=== PATIENT | male | born 1995 | race Caucasian/White ===

== ENCOUNTER 2019-07-04 10:50 | Emergency (ER) | payer OTHER, SELFPAY ==
[2019-07-04 11:04] VITALS: BP 114/75; PULSE 60; RESP 16; TEMP 36.6; O2SAT 99; BMI 22.1
--- NOTE | 2019-07-04 11:04 | ED_ITS ---
HPI - Head Injury General: Chief complaint: Head Injury Stated complaint: Hit head Time Seen by Provider: 07/04/19 11:04 Source: patient Mode of arrival: ambulatory Limitations: no limitations History of Present Illness: HPI Narrative: Pt had trauma to head while at work, part fell on head while working under car. States about 50 lbs. Complaint: head injury Onset (ago): hour(s) Place: work Severity: mild Review of Systems General: Reports: 10 or more systems reviewed and unremarkable except in HPI and below PFSH ED PFSH: Social History Smoking and tobacco status: never smoked Physical Exam Const: COMMON NORMALS: no apparent distress, oriented x3, no limitations and alert GENERAL APPEARANCE: cooperative and comfortable ORIENTATION/CONSCIOUSNESS: Yes awake, Yes oriented to person, Yes oriented to place and Yes oriented to time HENMT: COMMON NORMALS: normocephalic, head/scalp atraumatic, external ears normal, EAC's normal, TM's normal bilaterally and external nose normal HEAD & SCALP: normal to inspection, normocephalic and atraumatic HEAD IMAGES: 1. small area of ecchymosis and abrasion FACE & SINUS: normal facial exam, sinuses nontender and face symmetric NOSE: external nose normal, nares normal and no nasal discharge EXTERNAL EAR: Yes external ears normal EXTERNAL AUDITORY CANAL: EAC's normal TYMPANIC MEMBRANE: TM's normal bilaterally MOUTH: oral and palatal mucosa normal, lip normal and tongue normal THROAT: posterior oropharynx normal, tonsils normal and uvula midline Eye: COMMON NORMALS: PERRL, EOMs intact bilaterally and conjunctivae normal GENERAL EYE: normal appearance of both eyes and normal light reflex EYELID: eyelids normal CONJUNCTIVA: Yes conjunctivae normal PUPIL: Yes PERRL EOM: Yes EOM abnormal DIRECT OPHTHALMOSCOPY: Yes normal light reflex Neck/C-Spine: COMMON NORMALS: full ROM, no lymphadenopathy, supple, no meningeal signs, no JVD and thyroid normal GENERAL: Yes normal visual inspection THYROID: thyroid normal CERVICAL SPINE: Yes cervical ROM normal and Yes normal cervical lordosis Lymph: LYMPHATIC: no lymphadenopathy noted Chest: COMMONS NORMALS: inspection of chest normal and palpation of chest normal Resp: COMMON NORMALS: normal respiratory effort, no retractions and clear to auscultation bilaterally AUSCULTATION: clear to auscultation bilaterally Cardio: COMMON NORMALS: no JVD, regular rate, regular rhythm, S1 normal heart sound, S2 normal heart sound, no gallops, no clicks, no murmurs, no rub and peripheral pulses 2+ throughout RATE: regular rate RHYTHM: regular rhythm HEART SOUNDS: S1 normal and S2 normal PERIPHERAL PULSES: pulses 2+ throughout GI: COMMON NORMALS: normal to inspection, nondistended, normoactive bowel sounds, soft to palpation, non-tender and no masses PALPATION: Yes soft : COMMON NORMALS: Yes no CVA tenderness BLADDER/KIDNEY EXAM: Yes no CVA tenderness Back/Pelvis: COMMON NORMALS: no CVA tenderness, thoracic and lumbar spine normal to inspection, no thoracic nor lumbar tenderness and thoraco-lumbar ROM normal Extremity: COMMON NORMALS: normal to inspection, full ROM, normal capillary refill, no joint enlargement, no clubbing, cyanosis or edema, no calf tenderness and no pedal edema GENERAL: Yes normal exam except as noted Neuro: COMMON NORMALS: oriented x3, moves all extremities, no focal motor deficits, no sensory deficits noted and gait normal SENSORIUM/ORIENTATION: Yes alert, Yes oriented to person, Yes oriented to place and Yes oriented to time MENINGEAL SIGNS: Yes no meningeal signs Psych: COMMON NORMALS: mental status grossly normal, thought process normal, cooperative, affect normal, speech normal and activity/motor behavior normal SPEECH: Yes normal speech THOUGHT PROCESS: normal thought process Skin: COMMON NORMALS: no rashes or lesions noted, no wounds and skin turgor normal GENERAL SKIN EXAM: no rashes or lesions noted and turgor normal Course ED course: Pt assymptomatic upon arrival. States injury occurred two hours ago. Due to hx of brain bleed, will proceed with ct head despite negative assessment. Reevaluation(s): Reevaluation #1: CT head completed. Pt requesting pain meds. Orders placed. Awaiting dictation of report before DC Time: 12:44 Vital Signs: Vital signs: Vital Signs Temperature 97.9 F 07/04/19 11:04 Pulse Rate 51 L 07/04/19 12:54 Respiratory Rate 16 07/04/19 12:54 Blood Pressure 117/78 07/04/19 12:54 Pulse Oximetry 99 07/04/19 12:54 MDM - Head Injury Imaging Data^: CT Head: Radiologist's impression: [facility] [address] [place] [address] CT Scan Report Signed Patient: Carlos Cobb Unit #: [id number] : 1995 Age/Sex: 24 / M ADM Date: 07/04/19 Loc: ER Room/Bed: Attending Dr: Ordering Provider/Ordering MD: Cathie Quijano NP Date of Service: 07/04/19 Procedure(s): CT head wo con* [id number] Accession Number(s): [id number] Report Number: [id number] WS: [id number] CT scan of the head, 07/04/2019 Clinical Data: head trauma; hx of brain bleed Comparison: CT head, 12/09/2017. DLP: 893.[address] scans at [facility] use at least one of these dose optimization techniques: automated exposure control; mA and/or kV adjustment per patient size (includes targeted exams where dose is matched to clinical indication); or iterative reconstruction. Findings: There is a high attenuation lesion in the deep white matter at the junction of the frontal and parietal lobes measuring 0.8 cm. This is not changed from a prior CT Head. The ventricular system is normal without shift. No recent infarct or hemorrhage is seen. There are no abnormal intracerebral masses. The cerebellum and brainstem are not remarkable. Bony windows of the skull and skull base show no fractures or erosions. The mastoid air cells, internal auditory canals, sella turcica, intraorbital contents, and paranasal sinuses are unremarkable. CT/CT head wo con* [id number] Impression: 1. Deep white matter lesion of the right frontal parietal lobe unchanged m easuring 0.8 cm and this could represent an unchanging vascular lesion, a hamartoma and other lesions. 2. Negative for acute intracranial abnormalities. Dictated By: Eolina Dumont MD Signed By: Eloina Dumont MD Signed Date/Time: 07/04/19 1246 DD/ 1242 Discharge Plan Discharge Patient Disposition: Home, Self-Care Clinical Impression: Closed head injury Condition: Stable Discharge Diet: Usual diet Discharge Activity: Increase activity as tolerated Activity Restrictions/Additional Instructions: Rest today. May resume regular activity after 24 hours. Stand Alone Forms: Work/School Release Coding Level of Care Code ED Senior Ux Developer for [employer] Fwd Exam Comprehensive
--- NOTE | 2019-07-04 11:04 | W.ED.HEATRA ---
HPI - Head Injury General: Stated complaint: Hit head Time Seen by Provider: 07/04/19 11:04 Coding Level of Care Code ED Livestock Feeder for Bree Ruiz
--- NOTE | 2019-07-04 11:28 | CT_ITS ---
WS: [id number] CT scan of the head, 07/04/2019 Clinical Data: head trauma; hx of brain bleed Comparison: CT head, 12/09/2017. DLP: 893.[address] scans at [facility] use at least one of these dose optimization techniques: automat ed exposure control; mA and/or kV adjustment per patient size (includes targeted exams where dose is matched to clinical indication); or iterative reconstruction. Findings: There is a high attenuation lesion in the deep white matter at the junction of the frontal and parietal lobes measuring 0.8 cm. This is not changed from a prior CT Head. The ventricular system is normal without shift. No recent infarct or hemorrhage is seen. There are no abnormal intracerebra l masses. The cerebellum and brainstem are not remarkable. Bony windows of the skull and skull base show no fractures or erosions. The mastoid air cells, internal audit consultant al auditory canals, sella turcica, intraorbital contents, and paranasal sinuses are unremarkable. CT/CT head wo con* [id number] Impression: 1. Deep white matter lesion of the right frontal parietal lobe unchanged measur ing 0.8 cm and this could represent an unchanging vascular lesion, a hamartoma and other lesions. 2. Negative for acute intracranial abnormalities.
[2019-07-04 11:35] VITALS: BP 98/70; PULSE 69; RESP 16; O2SAT 99
[2019-07-04 12:17] VITALS: PULSE 56; RESP 16; O2SAT 99
[2019-07-04] MEDS: HYDROcodone-acetaminophen 5-325 mg Tablet 1 TAB PO (12:33)
[2019-07-04 12:54] VITALS: BP 117/78; PULSE 51; RESP 16; O2SAT 99
[2019-07-04 13:38] VITALS: BP 120/79; PULSE 53; RESP 16; O2SAT 97
== END 2019-07-04 13:38 | disposition home or self-care (01) ==
LOC: ER 13:37
PROVIDERS: Emergency Provider Nurse Practitioner Family
DX: S09.90XA Unspecified injury of head, initial encounter (principal); W22.8XXA Striking against or struck by other objects, initial encounter; Y99.0 Civilian activity done for income or pay
CPT/HCPCS: 12345; 70450; 99282; 99283

== ENCOUNTER 2024-05-16 19:42 | Emergency (ER) | payer SELFPAY ==
[2024-05-16] VITALS (7 sets, daily range): BP systolic 109–140; BP diastolic 63–85; PULSE 53–77; RESP 14–17; TEMP 36.7; O2SAT 93–99; BMI 26.9
[2024-05-16 20:54] LABS: Basophils # 0.1 10^3/uL (0.0-0.1); Basophils % 0.8 %; Eosinophils # 0.1 10^3/uL (0.0-0.8); Eosinophils % 1.7 %; Hematocrit 41.1 % (37-53); Lymphocytes # 2.5 10^3/uL (0.8-4.8); Lymphocytes % 33.4 %; Mean Corpuscular HGB Conc 34.3 g/dL (30-55); Mean Corpuscular Hemoglobin 29.8 pg (27-33); Mean Corpuscular Volume 86.9 fl (82-101); Monocytes # 0.6 10^3/uL (0.2-0.9); Monocytes % 8.1 %; Neutrophils # 4.23 10^3/uL (1.8-7.7); Neutrophils % 55.9 %; Nucleated Red Blood Cells % 0 %; Platelet Count 300 10^3/cmm (157-399); Red Blood Count 4.73 10^6/uL (3.85-5.65); Red Cell Distribution Width 13.2 % (12.1-15.1); White Blood Count 7.57 10^3/uL (3.29-11.43)
--- NOTE | 2024-05-16 20:55 | XRR_ITS ---
PROCEDURE INFORMATION: Exam: XR Chest Exam date and time: 05/16/2024 9:08 PM Age: 29 years old Clinical indication: Other: Weakness TECHNIQUE: Imaging protocol: Radiologic exam of the chest. Views: 1 view. COMPARISON: No relevant prior studies available. FINDINGS: Lungs: Unremarkable. No consolidation. Pleural spaces: Unremarkable. No pleural effusion. No pneumothorax. Heart/Mediastinum: Unremarkable. No cardiomegaly. Bones/joints: Unremarkable. XR/XR chest 1V portable [id number] IMPRESSION: No acute findings.
--- NOTE | 2024-05-16 21:07 | ECG_ITS ---
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 Measurements Intervals [place] Rate: 58 P: 68 [place]: 143 QRS: 28 QRSD: 88 T: 46 QT: 402 QTc: 398 Interpretive Statements SINUS BRADYCARDIA Compared to ECG 12/09/2017 12:49:37 Sinus rhythm no longer present Electronically Signed On 05-18-2024 11:17:05 [facility] by Yannick Erazo M.D. [email or web address]
[2024-05-16 21:09] LABS: Alanine Aminotransferase 11 U/L (0-41); Albumin Level 4.9 g/dL (3.5-5.2); Alkaline Phosphatase 74 U/L (40-130); Anion Gap 14.5 (5-19); Aspartate Amino Transferase 19 U/L (0-40); Blood Urea Nitrogen 8 mg/dL (6-20); Calcium 9.8 mg/dL (8.5-10.5); Carbon Dioxide 25 mmol/L (22-29); Chloride 104 mmol/L (98-107); Creatinine Clr Calc Pharmacy 143.5147; Glucose 81 mg/dL (65-115); Osmolality Calculated 287 mOsm/kg (285-295); Potassium 3.5 mmol/L (3.5-5.1); Sodium 140 mmol/L (136-145); Total Bilirubin 0.3 mg/dL (0.15-1.2); Total Protein 7.9 g/dL (6.6-8.7)
[2024-05-16 21:24] LABS: Magnesium 2.1 mg/dL (1.7-2.3)
[2024-05-16 21:28] LABS: Troponin(5th) Baseline < 6 ng/L (0-15)
--- NOTE | 2024-05-16 21:34 | CTR_ITS ---
PROCEDURE INFORMATION: Exam: CT Head Without Contrast Exam date and time: 05/16/2024 10:05 PM Age: 29 years old Clinical indication: Stroke-like symptoms; Other: Vertigo; Additional info: Sudden onset vertigo, presyncope, history of intracranial bl TECHNIQUE: Imaging protocol: Computed tomography of the head without contrast. Radiation optimization: All CT scans at this facility use at least one of these dose optimization techniques: automated exposure control; mA and/or kV adjustment per patient size (includes targeted exams where dose is matched to clinical indication); or iterative reconstruction. Other technique: STROKE PROTOCOL was implemented. COMPARISON: 1. CT head wo con* [id number] 07/04/2019 11:[address] head wo con* [id number] 12/09/2017 12:37 PM RADIATION DOSE METRICS: Total DLP (mGy-cm): 1192.18 FINDINGS: Brain: No acute abnormality. Redemonstrated small 8 mm mildly hyperdense lesion within the right frontoparietal deep white matter without significant interval change. No significant edema, mass effect or midline shift. No superimposed acute hemorrhage. Cerebral ventricles: No acute abnormality. No significant ventriculomegaly. Paranasal sinuses: No significant or acute abnormality. No air-fluid levels. Mastoid air cells: No acute abnormality. No significant mastoid effusion. Bones: No acute osseous abnormality. No acute fracture. Soft tissues: No significant soft tissue abnormalities. CT/CT head wo con* [id number] IMPRESSION: 1. No evidence of acute intracranial abnormality. 2. Redemonstrated small 8 mm mildly hyperdense lesion within the right frontoparietal deep white matter without significant interval change. Differential diagnosis includes small cavernoma or other benign lesion. ASSESSMENT: ASPECTS (Eloisa Stroke Program Early CT Score) is 10.
[2024-05-16 21:35] LABS: Bacteria Urine None Seen /hpf; Hyaline Casts Urine 0-4 /lpf; RBC Urine 0-2 /hpf (0-2); Squamous Epithelial Cell Urine 0-5 /hpf (0-5); WBC Urine 0-5 /hpf (0-5)
[2024-05-16 21:38] LABS: Amphetamines Screen Urine Negative (Negative); Barbiturates Screen Urine Negative (Negative); Benzodiazepines Screen Urine Negative (Negative); Cocaine Screen Urine Negative (Negative); Opiate Screen Urine Negative (Negative); PCP Screen Urine Negative (Negative); THC Screen Urine Negative (Negative)
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
[2024-05-16 21:47] LABS: Add Urine Microscopic? YES; Bilirubin Urine Negative (Negative); Blood Urine Negative (Negative); Glucose Urine UA Negative (Normal); Ketones Urine Negative (Negative); Leukocyte Esterase Urine Negative (Negative); Nitrate Urine Negative (Negative); Protein Urine Negative (Negative); Specific Gravity, Urine 1.004 (1.005-1.030); Urine Color Yellow (Yellow); Urobilinogen Urine 0.2 mg/dL (Negative); pH Urine 7.5 (5-7)
[2024-05-16 21:48] LABS: Urine Appearance Clear (CLEAR)
--- NOTE | 2024-05-16 22:38 | ECG_ITS ---
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 Measurements Intervals [place] Rate: 54 P: 50 [place]: 144 QRS: 9 QRSD: 89 T: 43 QT: 412 QTc: 391 Interpretive Statements SINUS BRADYCARDIA Compared to ECG 05/16/2024 21:07:06 No significant changes Electronically Signed On 05-20-2024 13:44:59 SMOKE INSPECTOR by Yannick Erazo M.D. [email or web address]
[2024-05-16 22:58] LABS: Troponin 5 2HR Delta 0.00001 ABS# (0-10)
[2024-05-17] VITALS: BP 106/69; PULSE 56; O2SAT 97
[2024-05-17 00:09] LABS: Covid PCR NEGATIVE (Negative); Influenza A NEGATIVE (Negative); Influenza B NEGATIVE (Negative); Respiratory Syncytial Virus Ce NEGATIVE (Negative)
[2024-05-17 00:25] VITALS: BP 102/66; PULSE 55; O2SAT 95
== END 2024-05-17 00:28 | disposition home or self-care (01) ==
PROVIDERS: Emergency Medicine; Emergency Provider Emergency Medicine; PCP Family Medicine
DX: R42 Dizziness and giddiness (principal); R20.2 Paresthesia of skin
CPT/HCPCS: 36415; 70450; 71045; 80053; 80306; 81001; 83735; 84484; 85025; 87637; 93005; 99285